=== PATIENT | female | born 1995 ===

== ENCOUNTER 2016-06-23 09:26 | Outpatient (CLI) | payer OTHER ==
--- NOTE | 2016-06-23 10:10 | XRay Report ---
ROUTINE CHEST, TWO VIEWS: PA and lateral views demonstrate the heart and mediastinal contour to be of normal size and shape. The lungs are clear and fully expanded and the soft tissues and bony structures are normal. IMPRESSION: Normal study.
--- NOTE | 2016-06-23 10:10 | XRay Report ---
Paranasal sinuses 3 views. Findings: The paranasal sinuses are clear. No air-fluid levels are seen. The bony structures are normal. Impression: Normal study.
== END 2016-06-23 09:27 | disposition home or self-care (01) ==
LOC: SPVIMAG 09:26
PROVIDERS: ATTEND Specialist
DX: J45.909 Unspecified asthma, uncomplicated (principal); J30.9 Allergic rhinitis, unspecified
CPT/HCPCS: 70210; 71020